=== PATIENT | female | born 1995 ===

== ENCOUNTER 2024-01-07 12:41 | Emergency (ER) | payer OTHER | END 2024-01-07 19:54 | disposition home or self-care (01) | LOC: EC 12:41 | CPT/HCPCS: 99283 ==

== ENCOUNTER 2024-01-09 19:36 | Observation (INO) | payer OTHER ==
[~2024-01-09 19:36] MED LIST: ACETAMINOPHEN TAB 500 MG TAB ONE; diphenhydrAMINE 50 MG/ML 1 ML VIAL ONE
[2024-01-10] MEDS ORDERED: HEPARIN SODIUM,PORCINE 5,000 UNIT/ML 1 ML VIAL ONE ×2 (01:03→08:03)
--- NOTE | 2024-02-02 10:16 | XR ---
Patient: Reynaldo Martines Ordering Physician: Unknown, Unknown ID: [id number] Phone, Pager: Phone: N/A Pager: N/A : 1995 Age/Gender: 28Y, F Primary Location: N/A Procedure: XR chest 2V Study Date: 01/09/2024 4:05:36 PM EXAMINATION TYPE: XR chest 2V DATE OF EXAM: 01/09/2024 COMPARISON: None HISTORY: 28-year-old female palpitations, 19 weeks TECHNIQUE: PA and lateral views FINDINGS: The cardiomediastinal silhouette, aorta, and pulmonary vasculature are within normal limits. Lungs an d pleural spaces are clear. IMPRESSION: No acute cardiopulmonary process.
== END 2024-01-10 16:49 | disposition home or self-care (01) ==
LOC: DISRECOVER 19:36 → INTOOBSV 19:36 → UNDODISIN 01-10 16:49 → UNDODISOB 01-10 16:49
PROVIDERS: ADMIT Internal Medicine; ATTEND Internal Medicine
DX: O26.892 Other specified pregnancy related conditions, second trimester (principal); R55 Syncope and collapse; R82.71 Bacteriuria; O99.412 Diseases of the circulatory system complicating pregnancy, second trimester; I45.6 Pre-excitation syndrome; Z3A.19 19 weeks gestation of pregnancy
CPT/HCPCS: 71046; 96361; 96374; 99285

== ENCOUNTER 2024-03-17 11:22 | Outpatient (CLI) | payer OTHER ==
[2024-03-17 13:12] VITALS: BP 115/74; PULSE 64; RESP 14; TEMP 96.7
--- NOTE | 2024-03-21 12:09 | P.MSEPDOC ---
Presenting Problems - Arrival Data Date of Arrival on Unit: 03/17/24 Time of Arrival on Unit: 11:40 Mode of Transport: Ambulatory - Complaint OB-Reason for Admission/Chief Complaint: Vaginal Bleeding Medical History - Information : 1 Para: 0 Term: 0 - Gestational Age Gestational Age by GUY (wks/days): 28 Weeks and 1 Days Review of Systems - Review of Systems Constitutional: No problems Breast: No problems ENT: No problems Cardiovascular: No problems Respiratory: No problems Gastrointestinal: No problems Genitourinary: No problems Musculoskeletal: No problems Neurological: No problems Skin: No problems Vital Signs - Temperature Temperature: 96.7 F Temperature Source: Temporal Artery Scan - Pulse Right Brachial Pulse Rate: 64 Pulse Assessment Method: Automatic Cuff - Respirations Respiratory Rate: 14 Oxygen Delivery Method: Room Air - Blood Pressure Right Arm Blood Pressure: 115/74 Blood Pressure Mean: 87 Blood Pressure Source: Automatic Cuff Medical Screen Scoring - Assessment - Baby A Baseline FHR: 145 Heart Rate - NICHD Category: Category I (Normal) Physician Notification - Physician Notified Physician Notified Date: 03/17/24 Physician Notified Time: 12:40 Physician: Tiffani Elizabeth New Order Received: Yes - Notification Comment Comment: reported pt visit as documented on obix. pt to be discharged home Maternal Triage Index - Maternal Triage Index Presenting for scheduled procedure w/no complaint: No - Stat/Priority 1 Stat Priority 1: No - Urgent/Priority 2 Urgent Priority 2: No - Prompt/Priority 3 Prompt Priority 3: No - Non-Urgent/Priority 4 Non-Urgent Priority 4: Yes Criteria Met for Priority 4: small amount of blood on tissue when using washroom x1 Disposition - Disposition OB Disposition: Discharge to home Discharge Date: 03/17/24 Discharge Time: 12:47 I agree with the RN Medical Screening Exam: Yes Case reviewed; plan agreed upon as documented in EMR&OBIX.: Yes Diagnosis: RELATED CONDITIONS, UNSPECIFIED, SECOND TRIMESTER
== END 2024-03-17 12:47 | disposition home or self-care (01) ==
LOC: FBPOP 11:22
PROVIDERS: ATTEND Obstetrics & Gynecology Obstetrics
DX: O46.93 Antepartum hemorrhage, unspecified, third trimester (principal); Z3A.28 28 weeks gestation of pregnancy
CPT/HCPCS: 59025; G0463; 99213